=== PATIENT | female | born 1965 | race Caucasian/White ===

== ENCOUNTER 2017-10-19 23:05 | Emergency (ER) | payer BC ==
[2017-10-19 23:18] VITALS: BP 154/83
--- NOTE | 2017-10-20 00:06 | EDM.PDOC ---
ED HPI GENERAL MEDICAL PROBLEM - General Chief Complaint: Chest Pain Stated Complaint: CHEST PAIN Time Seen by Provider: 10/19/17 23:23 Source of Information: Reports: Patient, RN Notes Reviewed History Limitations: Reports: No Limitations - History of Present Illness INITIAL COMMENTS - FREE TEXT/NARRATIVE: Brought in by her Chief complaint Palpitations History of present illness 51-year-old female with history of atrial fibrillation, previously on medication but has been stable for several years. Was nauseated in the evening after dinner. 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 Woke up at 10:10 PM feeling her heart beating weirdly. She sat up, her nausea had gotten worse than before the nap and she felt an irregularity in her heart which she confirmed by you listening with her own stethoscope. She felt lightheaded when she walked around. Since it didn't settle down as her irregular heartbeat has in the past, she decided to come into emergency. She still feels "different", nausea has somewhat subsided. No chest pain no shortness of breath no cough no wheezing. 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 Underwent mechanical valve placement. Her atrial fibrillation for which she had been on regular medication improved over the next couple of years and now she only gets occasional irregular heartbeats which she can usually get better by sitting up and walking around. Back in the beginning she had medical cardioversion twice for atrial fibrillation. She remains on Coumadin long-term because of the mechanical valve No recent infections or injuries - Related Data Allergies Allergy/AdvReac Type Severity Reaction Status Date / Time acetaminophen [From Percocet] Allergy Hives Verified 10/19/17 23:17 furosemide Allergy Hives Verified 10/19/17 23:17 iodine Allergy Hives Verified 10/19/17 23:17 oxycodone HCl [From Percocet] Allergy Hives Verified 10/19/17 23:17 tramadol Allergy Bradycardia Verified 10/19/17 23:17 codeine AdvReac Nausea Verified 10/19/17 23:17 erythromycin base AdvReac Nausea Verified 10/19/17 23:17 [Erythromycin Base] diagnostic material Allergy Cannot Uncoded 10/19/17 23:17 Remember Home Meds: Home Meds Albuterol [Proair HFA] 2 puff INH Q6H PRN 02/23/15 [History] Ascorbic Acid 500 mg PO DAILY 02/23/15 [History] Cetirizine [ZyrTEC] 10 mg PO DAILY PRN 02/23/15 [History] Cyclobenzaprine [Flexeril] 5 mg PO BID PRN 02/23/15 [History] Levothyroxine [Synthroid] 50 mcg PO ACBREAKFAST 02/23/15 [History] Multivitamin with Minerals [Multiple Vitamin] 1 tab PO DAILY 02/23/15 [History] [place]-3/DHA/Epa/Fish Oil [Fish Oil 1,000 mg Softgel] 1 tab PO DAILY 02/23/15 [ History] Warfarin Sodium [Coumadin] 8 mg PO .MWF 02/23/15 [History] Calcium Carbonate/Vitamin D3 [Calcium Carbonate/Vitamin D 600 MG-200 Unit] 2 tab PO DAILY 10/19/17 [History] Celecoxib 200 mg PO DAILY PRN 10/19/17 [History] Cholecalciferol (Vitamin D3) [Vitamin D3] 5,000 unit PO DAILY 10/19/17 [History] Ubidecarenone [Co Q-10] 200 mg PO DAILY 10/19/17 [History] atorvaSTATin [Lipitor] 10 mg PO BEDTIME 10/19/17 [History] buPROPion [buPROPion XL] 150 mg PO BID 10/19/17 [History] Past Medical History HEENT History: Reports: Allergic Rhinitis, Impaired Vision Cardiovascular History: Reports: Arrhythmia, High Cholesterol Respiratory History: Reports: Bronchitis, Recurrent Other Respiratory History: had positive mantoux-tx Gastrointestinal History: Reports: Chronic Constipation, Chronic Diarrhea, Diverticulosis, Irritable Bowel Syndrome Genitourinary History: Reports: UTI, 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: Musculoskeletal History: Reports: Fibromyalgia Endocrine/Metabolic History: Reports: Hypoparathyroidism, Vitamin D Deficiency Hematologic History: Reports: Anemia, Anticoagulation Therapy - Infectious Disease History Infectious Disease History: Reports: Chicken Pox, Measles, Mumps, Pertussis ( Whooping Cough) - Past Surgical History HEENT Surgical History: Reports: Adenoidectomy, Tonsillectomy Other HEENT Surgeries/Procedures: deviated septum repair Cardiovascular Surgical History: Reports: Valve Replacement GI Surgical History: Reports: Cholecystectomy, Colonoscopy Female Surgical History: Reports: Hysterectomy Social & Family History - Tobacco Use Smoking Status *Q: Never Smoker - Caffeine Use Caffeine Use: Reports: Coffee - Recreational Drug Use Recreational Drug Use: No ED ROS GENERAL - Review of Systems Review Of Systems: See Below Constitutional: Reports: Other (Feels odd, different, nauseated). Denies: Decreased Appetite, Weight Loss HEENT: Reports: No Symptoms Respiratory: Reports: No Symptoms Cardiovascular: Reports: Lightheadedness, Palpitations. Denies: Chest Pain, Dyspnea on Exertion, Syncope GI/Abdominal: Reports: Nausea. Denies: Abdominal Pain, Diarrhea, Decreased Appetite, Vomiting : Reports: No Symptoms Musculoskeletal: Reports: Back Pain (Chronic), Leg Pain (Restless legs) Skin: Reports: No Symptoms Neurological: Reports: No Symptoms. Denies: Difficulty Walking Psychiatric: Reports: No Symptoms ED EXAM, GENERAL - Physical Exam Exam: See Below Exam Limited By: No Limitations General Appearance: Alert, Anxious, Mild Distress, Other (Heart rate is normal although the rhythm appears irregular, unclear if she is in atrial fibrillation or not, Mild elevation blood pressure) Eye Exam: Bilateral Eye: Normal Inspection Ears: Hearing Grossly Normal Nose: Normal Inspection Throat/Mouth: Normal Inspection Neck: Normal Inspection, Supple Respiratory/Chest: No Respiratory Distress, Lungs Clear, Normal Breath Sounds, No Accessory Muscle Use Cardiovascular: Other (Appears to be's regular rhythm with frequent premature beats or else slow atrial fibrillation). No: Bradycardia, Tachycardia Neurological: Alert, Oriented, No Motor/Sensory Deficits Psychiatric: Anxious (Mildly) Skin Exam: Warm, Dry, Intact, Normal Color Course - Vital Signs Last Recorded V/S: Last Vital Signs Temp 36.4 C 10/19/17 23:26 Pulse 68 10/19/17 23:26 Resp 16 10/19/17 23:26 BP 154/83 H 10/19/17 23:26 Pulse Ox 98 10/19/17 23:26 - Orders/Labs/Meds Orders: Active Orders 24 hr Category Date Time Status EKG Documentation Completion [RC] ASDIRECTED Care 10/19/17 23:46 Active EKG 12 Lead [EK] Routine Ther 10/19/17 23:46 Ordered - Re-Assessments/Exams Free Text/Narrative Re-Assessment/Exam: 10/20/17 00:06 51-year-old female with history of aortic valve replacement with mechanical valve, on chronic Coumadin, and history of atrial fibrillation, presenting with lightheadedness, malaise, nausea and palpitations. EKG 10/20/17 00:56 Sinus rhythm with PACs rate 58 No treatment required However this is the current rhythm, she could've had atrophic ablation earlier in the evening. So if the arrhythmia/palpitations is persistent or worsening orifices associated with shortness of breath or chest pain or difficulties breathing and she should get rechecked Departure - Departure Time of Disposition: 00:57 Disposition: Home, Self-Care 01 Clinical Impression: Premature atrial contractions - Discharge Information Instructions: Premature Atrial Contraction Referrals: PCP,None [Primary Care Provider] - Forms: ED Department Discharge Additional Instructions: Premature atrial contractions normally do not need treatment, they are a variation of normal If you develop bad chest pain, difficulty breathing, or racing heart get rechecked promptly - My Orders Last 24 Hours: My Active Orders 10/19/17 23:46 EKG Documentation Completion [RC] ASDIRECTED EKG 12 Lead [EK] Routine - Assessment/Plan Last 24 Hours: My Active Orders 10/19/17 23:46 EKG Documentation Completion [RC] ASDIRECTED EKG 12 Lead [EK] Routine
== END 2017-10-20 01:25 | disposition home or self-care (01) ==
LOC: JP.ED 23:05
DX: I49.1 Atrial premature depolarization (principal); E78.00 Pure hypercholesterolemia, unspecified; Z79.01 Long term (current) use of anticoagulants; Z79.899 Other long term (current) drug therapy; Z88.5 Allergy status to narcotic agent; Z88.1 Allergy status to other antibiotic agents; Z88.8 Allergy status to other drugs, medicaments and biological substances; Z88.6 Allergy status to analgesic agent
CPT/HCPCS: 93005; 99285-25

== ENCOUNTER 2019-09-02 10:18 | Emergency (ER) | payer BC ==
[2019-09-02 10:26] VITALS: PULSE 88
[2019-09-02 10:39] VITALS: BP 135/103
--- NOTE | 2019-09-02 10:54 | EDM.PDOC ---
ED HPI GENERAL MEDICAL PROBLEM - General Chief Complaint: Cardiovascular Problem Stated Complaint: 24HRS A FIB Time Seen by Provider: 09/02/19 10:42 Source of Information: Reports: Patient, RN Notes Reviewed History Limitations: Reports: No Limitations - History of Present Illness INITIAL COMMENTS - FREE TEXT/NARRATIVE: 53-year-old female presents emergency department today with complaint of palpitations and nausea, she has known history of paroxysmal atrial fibrillation as well as aortic valve replacement on chronic anticoagulation therapy. Has had difficulties with atrial fibrillation which usually spontaneously converts after her valve surgery. However this particular event started yesterday morning at 8:00 and has not spontaneously converted she has no other symptoms at this time. - Related Data Allergies Allergy/AdvReac Type Severity Reaction Status Date / Time acetaminophen [From Percocet] Allergy Hives Verified 09/02/19 10:29 furosemide Allergy Hives Verified 09/02/19 10:29 iodine Allergy Hives Verified 09/02/19 10:29 oxycodone HCl [From Percocet] Allergy Hives Verified 09/02/19 10:29 tramadol Allergy Bradycardia Verified 09/02/19 10:29 codeine AdvReac Nausea Verified 09/02/19 10:29 erythromycin base AdvReac Nausea Verified 09/02/19 10:29 [Erythromycin Base] diagnostic material Allergy Cannot Uncoded 09/02/19 10:29 Remember Home Meds: Home Meds Albuterol [Proair HFA] 2 puff INH Q6H PRN 02/23/15 [History] Ascorbic Acid 500 mg PO DAILY 02/23/15 [History] Cetirizine [ZyrTEC] 10 mg PO DAILY PRN 02/23/15 [History] Cyclobenzaprine [Flexeril] 5 mg PO BID PRN 02/23/15 [History] Levothyroxine [Synthroid] 75 mcg PO ACBREAKFAST 02/23/15 [History] Multivitamin with Minerals [Multiple Vitamin] 1 tab PO DAILY 02/23/15 [History] [place]-3/DHA/Epa/Fish Oil [Fish Oil 1,000 mg Softgel] 1 tab PO DAILY 02/23/15 [ History] Warfarin Sodium [Coumadin] 8 mg PO ASDIRECTED 02/23/15 [History] Calcium Carbonate/Vitamin D3 [Calcium Carbonate/Vitamin D 600 MG-200 Unit] 2 tab PO DAILY 10/19/17 [History] Celecoxib 200 mg PO DAILY PRN 10/19/17 [History] Cholecalciferol (Vitamin D3) [Vitamin D3] 5,000 unit PO DAILY 10/19/17 [History] Ubidecarenone [Co Q-10] 200 mg PO DAILY 10/19/17 [History] buPROPion [buPROPion XL] 150 mg PO BID 10/19/17 [History] Rosuvastatin [Crestor] 10 mg PO DAILY 09/02/19 [History] Past Medical History HEENT History: Reports: Allergic Rhinitis, Impaired Vision Cardiovascular History: Reports: Afib (Paroxysmal), Arrhythmia, High Cholesterol Respiratory History: Reports: Bronchitis, Recurrent Other Respiratory History: had positive mantoux-tx Gastrointestinal History: Reports: Chronic Constipation, Chronic Diarrhea, Diverticulosis, Irritable Bowel Syndrome Genitourinary History: Reports: UTI, 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: Musculoskeletal History: Reports: Fibromyalgia Endocrine/Metabolic History: Reports: Hypoparathyroidism, Vitamin D Deficiency Hematologic History: Reports: Anemia, Anticoagulation Therapy, Blood Transfusion (s), Iron Deficiency - Infectious Disease History Infectious Disease History: Reports: Chicken Pox, Measles, Mumps, Pertussis ( Whooping Cough) - Past Surgical History Head Surgeries/Procedures: Reports: None HEENT Surgical History: Reports: Adenoidectomy, Tonsillectomy Other HEENT Surgeries/Procedures: deviated septum repair Cardiovascular Surgical History: Reports: Valve Replacement Respiratory Surgical History: Reports: None GI Surgical History: Reports: Cholecystectomy, Colonoscopy Female Surgical History: Reports: Hysterectomy Endocrine Surgical History: Reports: None Musculoskeletal Surgical History: Reports: None Social & Family History - Tobacco Use Smoking Status *Q: Former Smoker Used Tobacco, but Quit: Yes Month/Year Tobacco Last Used: 2004 Second Hand Smoke Exposure: No - Caffeine Use Caffeine Use: Reports: None - Recreational Drug Use Recreational Drug Use: No ED ROS GENERAL - Review of Systems Review Of Systems: See Below Constitutional: Reports: No Symptoms HEENT: Reports: No Symptoms Respiratory: Reports: No Symptoms Cardiovascular: Reports: Palpitations GI/Abdominal: Reports: Nausea : Reports: No Symptoms ED EXAM, GENERAL - Physical Exam Exam: See Below Exam Limited By: No Limitations General Appearance: Alert, WD/WN, No Apparent Distress Respiratory/Chest: No Respiratory Distress, Lungs Clear, Normal Breath Sounds, No Accessory Muscle Use, Chest Non-Tender Cardiovascular: No Murmur, Irregularly Irregular GI/Abdominal: Soft, Non-Tender ED CARDIOLOGY PROCEDURES - Cardioversion Time of Cardioversion: 12:30 Indication: Other (Symptomatic atrial fibrillation) Patient Counseled: Yes Informed Consent Obtained: Yes Preparation: IV Access, Airway Management Equipment, Supplemental Oxygen, Reversal Agents Available, Other (Anesthesia performed) Pre-Procedure Sedation: Propofol Cardioversion Energy: 200J Sync Successful: Yes Number of Attempts: 1 Patient Condition Post Cardioversion: Improved Post Cardioversion EKG Reviewed: Yes - Additional/Other Procedure(s) Other (Free Text) Procedure(s): Preprocedure diagnosis: Symptomatic atrial fibrillation Postprocedure diagnosis: Sinus rhythm Indication for procedure: Nausea and palpitations Performing physician: Officer Procedure: Patient is located emergency department. Review risks and benefits of electrical cardioversion including but not limited to: Superficial skin sandhu , ineffective treatment, unknown arrhythmias, reaction to anesthesia medications or asystole. The risks and benefits to this procedure have been discussed. Patient wishes to proceed with electrical cardioversion. The patient was connected to cardioversion pads with EKG monitoring, oxygen via nasal cannula with equipment of intubation and suction in the room. Informed consent was completed prior to the procedure with timeout performed by nursing staff. After adequate anesthesia was achieved the machine was charged to 200 joules and a synchronized electrical shock was applied. Patient was successfully converted to normal sinus rhythm based on telemetry monitoring. Patient will remain in the emergency department for post anesthesia care until awake and alert. Plan is to discharge home. Anticoagulation of Coumadin INR 4.5 Complications: None apparent Postprocedural EKG: Sinus rhythm Face to Face time 15 minutes Course - Vital Signs Last Recorded V/S: Last Vital Signs Temp 97.3 F 09/02/19 10:26 Pulse 88 09/02/19 10:38 Resp 14 09/02/19 10:38 BP 135/103 H 09/02/19 10:38 Pulse Ox 96 09/02/19 10:38 - Orders/Labs/Meds Orders: Active Orders 24 hr Category Date Time Status Cardiac Monitoring [RC] .As Directed Care 09/02/19 10:51 Active EKG Documentation Completion [RC] ASDIRECTED Care 09/02/19 10:52 Active EKG Documentation Completion [RC] ASDIRECTED Care 09/02/19 12:29 Active Peripheral IV Care [RC] . DIRECTED Care 09/02/19 10:52 Active Sodium Chloride 0.9% [Normal Saline] 1,000 ml Med 09/02/19 11:00 Active IV ASDIRECTED Sodium Chloride 0.9% [Saline Flush] Med 09/02/19 10:51 Active 10 ml FLUSH ASDIRECTED PRN Peripheral IV Insertion Adult [OM.PC] Stat Oth 09/02/19 10:51 Ordered EKG 12 Lead [EK] Stat Ther 09/02/19 10:52 Ordered EKG 12 Lead [EK] Stat Ther 09/02/19 12:29 Ordered Medication Orders Sodium Chloride (Normal Saline) 1,000 mls @ 125 mls/hr IV ASDIRECTED DARA Last Admin: 09/02/19 11:01 Dose: 125 mls/hr Sodium Chloride (Saline Flush) 10 ml FLUSH ASDIRECTED PRN PRN Reason: Keep Vein Open Last Admin: 09/02/19 11:02 Dose: 10 ml Labs: Laboratory Tests 09/02/19 09/02/19 09/02/19 Range/Units 11:00 11:00 11:35 WBC 4.8 (4.5-11.0) K/uL RBC 5.27 (3.30-5.50) M/uL Hgb 15.0 (12.0-15.0) g/dL Hct 45.5 (36.0-48.0) % MCV 86 (80-98) fL MCH 29 (27-31) pg MCHC 33 (32-36) % Plt Count 254 (150-400) K/uL Neut % (Auto) 63 (36-66) % Lymph % (Auto) 21 L (24-44) % [place] % (Auto) 11 H (2-6) % Eos % (Auto) 5 H (2-4) % Baso % (Auto) 0 (0-1) % PT 45.0 H (9.5-12.0) sec INR 4.54 H* (0.80-1.20) Sodium 142 (140-148) mmol/L Potassium 3.9 (3.6-5.2) mmol/L Chloride 107 (100-108) mmol/L Carbon Dioxide 27 (21-32) mmol/L Anion Gap 7.8 (5.0-14.0) mmol/L BUN 12 (7-18) mg/dL Creatinine 0.7 (0.6-1.0) mg/dL Est Cr Clr Drug Dosing 89.34 mL/min Estimated GFR (MDRD) > 60 (>60) Glucose 102 (74-106) mg/dL Calcium 8.5 (8.5-10.1) mg/dL Total Bilirubin 0.4 (0.2-1.0) mg/dL AST 23 (15-37) U/L ALT 37 (12-78) U/L Alkaline Phosphatase 59 (46-116) U/L Troponin I < 0.017 (0.000-0.056) ng/mL Total Protein 6.7 (6.4-8.2) g/dL Albumin 3.5 (3.4-5.0) g/dL Globulin 3.2 (2.3-3.5) g/dL Albumin/Globulin Ratio 1.1 L (1.2-2.2) Meds: Medications Generic Name Dose Route Start Last Admin Trade Name Freq PRN Reason Stop Dose Admin Sodium Chloride 1,000 mls @ 125 mls/hr 09/02/19 11:00 09/02/19 11:01 Normal Saline IV 125 mls/hr ASDIRECTED DARA Administration Sodium Chloride 10 ml 09/02/19 10:51 09/02/19 11:02 Saline Flush FLUSH 10 ml ASDIRECTED PRN Administration Keep Vein Open Discontinued Medications Generic Name Dose Route Start Last Admin Trade Name Freq PRN Reason Stop Dose Admin Diltiazem HCl 25 mg 09/02/19 10:53 09/02/19 11:02 Diltiazem IVPUSH 09/02/19 10:54 25 mg ONETIME ONE Administration Ondansetron HCl 4 mg 09/02/19 11:12 09/02/19 11:14 Zofran IVPUSH 09/02/19 11:13 4 mg ONETIME ONE Administration Propofol Confirm 09/02/19 12:36 Diprivan 20 Ml Administered 09/02/19 12:37 Dose 200 mg .ROUTE .STK-MED ONE Departure - Departure Time of Disposition: 13:16 Disposition: Home, Self-Care 01 Condition: Fair Clinical Impression: Paroxysmal atrial fibrillation Instructions: Atrial Fibrillation, [id number] Referrals: PCP,None [Primary Care Provider] - Forms: ED Department Discharge Additional Instructions: Resume regular medications recommend follow-up with cardiology consider consultation with electrophysiology to see if you are a candidate for an ablation, call or return to the emergency department with worsening of symptoms Sepsis Event Note - Evaluation Sepsis Screening Result: No Definite Risk - Focused Exam Vital Signs: Vital Signs Temp Pulse Resp BP Pulse Ox 09/02/19 10:38 88 14 135/103 H 96 09/02/19 10:26 97.3 F 88 15 145/97 H 97 09/02/19 10:24 97.3 F 88 15 145/97 H 97 Date Exam was Performed: 09/02/19 Time Exam was Performed: 13:16 - My Orders Last 24 Hours: My Active Orders 09/02/19 10:51 Cardiac Monitoring [RC] .As Directed Sodium Chloride 0.9% [Saline Flush] 10 ml FLUSH ASDIRECTED PRN Peripheral IV Insertion Adult [OM.PC] Stat 09/02/19 10:52 EKG Documentation Completion [RC] ASDIRECTED Peripheral IV Care [RC] . DIRECTED EKG 12 Lead [EK] Stat 09/02/19 11:00 Sodium Chloride 0.9% [Normal Saline] 1,000 ml IV ASDIRECTED 09/02/19 12:29 EKG Documentation Completion [RC] ASDIRECTED EKG 12 Lead [EK] Stat - Assessment/Plan Last 24 Hours: My Active Orders 09/02/19 10:51 Cardiac Monitoring [RC] .As Directed Sodium Chloride 0.9% [Saline Flush] 10 ml FLUSH ASDIRECTED PRN Peripheral IV Insertion Adult [OM.PC] Stat 09/02/19 10:52 EKG Documentation Completion [RC] ASDIRECTED Peripheral IV Care [RC] . DIRECTED EKG 12 Lead [EK] Stat 09/02/19 11:00 Sodium Chloride 0.9% [Normal Saline] 1,000 ml IV ASDIRECTED 09/02/19 12:29 EKG Documentation Completion [RC] ASDIRECTED EKG 12 Lead [EK] Stat Plan: Assessment Acuity = acute Site and laterality = symptomatic atrial fibrillation status post DC electrical cardioversion Etiology = unknown Manifestations = nausea and palpitations now resolved Location of injury = Home Lab values = CBC, CMP unremarkable troponin is negative INR supratherapeutic at 4.5, EKG initially demonstrated atrial fibrillation post EKG demonstrates a sinus rhythm chest x-ray shows no acute process Plan Plan is to discharge home resume current medications follow-up with cardiology discussed possibility of ablation This note was dictated using [employer] voice recognition software please call with any questions on syntax or grammar.
[2019-09-02] MEDS: Sodium Chloride 0.9% 1,000 ML IV SCH (11:01)
[2019-09-02] MEDS: Diltiazem 25 MG/5 ML SDV IVPUSH ONE (11:02)
[2019-09-02] MEDS: Sodium Chloride 0.9% 10 ML Syringe FLUSH PRN (11:02)
[2019-09-02] MEDS: Ondansetron 4 MG/2 ML SDV IVPUSH ONE (11:14)
--- NOTE | 2019-09-02 11:45 | CR ---
CHEST: Portable 09/02/2019 11:03 AM CLINICAL HISTORY:Chest pain COMPARISON:None FINDINGS: Patient has had previous sternotomy. The heart size, pulmonary vascularity and hilar structures are normal. No infiltrate effusion or pneumothorax is seen. IMPRESSION: No acute cardiopulmonary process Previous sternotomy for valve replacement
[2019-09-02] MEDS ORDERED: Propofol 200 MG/20 ML SDV ONE (12:36)
== END 2019-09-02 13:26 | disposition home or self-care (01) ==
LOC: JP.ED 10:18
DX: I48.0 Paroxysmal atrial fibrillation (principal); E78.00 Pure hypercholesterolemia, unspecified; E20.9 Hypoparathyroidism, unspecified; Z87.891 Personal history of nicotine dependence; Z95.2 Presence of prosthetic heart valve; Z88.6 Allergy status to analgesic agent; Z88.5 Allergy status to narcotic agent; Z88.1 Allergy status to other antibiotic agents; Z79.899 Other long term (current) drug therapy
CPT/HCPCS: 36415; 71045; 71045-26; 80053; 84484; 85025; 85610; 92960; 93005; 93041; 96374; 96375; 99285-25; J2405; J2704; J3490; J7030

== ENCOUNTER 2020-07-04 23:26 | Emergency (ER) | payer BC ==
[2020-07-05 00:02] VITALS: BP 152/73; PULSE 70
--- NOTE | 2020-07-05 00:24 | EDM.PDOC ---
ED HPI GENERAL MEDICAL PROBLEM - General Chief Complaint: General Stated Complaint: RIGHT ARM PAIN Time Seen by Provider: 07/05/20 00:14 Source of Information: Reports: Patient History Limitations: Reports: No Limitations - History of Present Illness INITIAL COMMENTS - FREE TEXT/NARRATIVE: Sarah is a 54-year-old female presenting to the ED with concern of possible cellulitis involving the right upper arm. The patient reports that she had rotator cuff repair done at [facility] 2 months ago and had recovered from that. Tonight she was experiencing some increased pain in the arm and rubbed it and noticed that it was red, hot, swollen, and tender and was concerned that she may have a cellulitis developing prompting her to come in for evaluation. She denies any fever or chills. She has had no trauma to the arm. No other complaints. - Related Data Allergies Allergy/AdvReac Type Severity Reaction Status Date / Time acetaminophen [From Percocet] Allergy Hives Verified 09/02/19 10:29 furosemide Allergy Hives Verified 09/02/19 10:29 iodine Allergy Hives Verified 09/02/19 10:29 oxycodone HCl [From Percocet] Allergy Hives Verified 09/02/19 10:29 tramadol Allergy Bradycardia Verified 09/02/19 10:29 codeine AdvReac Nausea Verified 09/02/19 10:29 erythromycin base AdvReac Nausea Verified 09/02/19 10:29 [Erythromycin Base] contrast dye Allergy Hives Uncoded 07/05/20 00:22 diagnostic material Allergy Cannot Uncoded 09/02/19 10:29 Remember Home Meds: Home Meds Albuterol [Proair HFA] 2 puff INH Q6H PRN 02/23/15 [History] Ascorbic Acid 500 mg PO DAILY 02/23/15 [History] Cetirizine [ZyrTEC] 10 mg PO DAILY PRN 02/23/15 [History] Cyclobenzaprine [Flexeril] 5 mg PO BID PRN 02/23/15 [History] Levothyroxine [Synthroid] 75 mcg PO ACBREAKFAST 02/23/15 [History] Multivitamin with Minerals [Multiple Vitamin] 1 tab PO DAILY 02/23/15 [History] [place]-3/DHA/Epa/Fish Oil [Fish Oil 1,000 mg Softgel] 1 tab PO DAILY 02/23/15 [History] Warfarin Sodium [Coumadin] 6 - 8 mg PO ASDIRECTED 02/23/15 [History] Calcium Carbonate/Vitamin D3 [Calcium Carbonate/Vitamin D 600 MG-200 Unit] 2 tab PO DAILY 10/19/17 [History] Cholecalciferol (Vitamin D3) [Vitamin D3] 10,000 unit PO DAILY 10/19/17 [History] Ubidecarenone [Co Q-10] 200 mg PO DAILY 10/19/17 [History] Rosuvastatin [Crestor] 10 mg PO DAILY 09/02/19 [History] Doxylamine Succinate [Sleep Aid] 12.5 mg PO BEDTIME 07/05/20 [History] Glucosam/Chond/Collagen/Hyalur [Glucosamine Chondroitin] 2 each PO DAILY 07/05/20 [History] HYDROmorphone [Dilaudid] 1 tab PO DAILY PRN 07/05/20 [History] Pramipexole [Mirapex] 1 tab PO BEDTIME 07/05/20 [History] Zolpidem Tartrate [Ambien] 5 mg PO BEDTIME PRN 07/05/20 [History] Past Medical History HEENT History: Reports: Allergic Rhinitis, Impaired Vision Cardiovascular History: Reports: Afib (Paroxysmal), Arrhythmia, High Cholesterol Respiratory History: Reports: Bronchitis, Recurrent Other Respiratory History: had positive mantoux-tx Gastrointestinal History: Reports: Chronic Constipation, Chronic Diarrhea, Diverticulosis, Irritable Bowel Syndrome Genitourinary History: Reports: UTI, 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: Musculoskeletal History: Reports: Fibromyalgia Endocrine/Metabolic History: Reports: Hypoparathyroidism, Vitamin D Deficiency Hematologic History: Reports: Anemia, Anticoagulation Therapy, Blood Transfusion(s), Iron Deficiency - Infectious Disease History Infectious Disease History: Reports: Chicken Pox, Measles, Mumps, Pertussis (W hooping Cough) - Past Surgical History Head Surgeries/Procedures: Reports: None HEENT Surgical History: Reports: Adenoidectomy, Tonsillectomy Other HEENT Surgeries/Procedures: deviated septum repair Cardiovascular Surgical History: Reports: Valve Replacement Respiratory Surgical History: Reports: None GI Surgical History: Reports: Cholecystectomy, Colonoscopy Female Surgical History: Reports: Hysterectomy Endocrine Surgical History: Reports: None Musculoskeletal Surgical History: Reports: None Social & Family History - Caffeine Use Caffeine Use: Reports: None ED ROS GENERAL - Review of Systems Review Of Systems: See Below Constitutional: Reports: No Symptoms HEENT: Reports: No Symptoms Respiratory: Reports: No Symptoms Cardiovascular: Reports: No Symptoms Endocrine: Reports: No Symptoms GI/Abdominal: Reports: No Symptoms : Reports: No Symptoms Musculoskeletal: Reports: No Symptoms Skin: Reports: Erythema (Redness, swelling, tenderness, and increased temperature of the right upper arm.) Neurological: Reports: No Symptoms Psychiatric: Reports: No Symptoms Hematologic/Lymphatic: Reports: No Symptoms Immunologic: Reports: No Symptoms ED EXAM, GENERAL - Physical Exam Exam: See Below Exam Limited By: No Limitations General Appearance: Alert, No Apparent Distress Peripheral Pulses: 2+: Radial (R) Neurological: Alert, Oriented, Normal Cognition, No Motor/Sensory Deficits Skin Exam: Warm, Erythema, Increased Warmth, Other (Swelling of the right upper arm.). No: Rash, Wound/Incision Lymphatic: No Adenopathy Front/Back Body Diagram: 1 - Red, hot, tender, swollen 2 - Red, hot, tender, swollen Course - Vital Signs Last Recorded V/S: Last Vital Signs Temp 36.6 C 07/05/20 00:33 Pulse 70 07/05/20 00:33 Resp 16 07/05/20 00:33 BP 152/73 H 07/05/20 00:33 Pulse Ox 98 07/05/20 00:33 - Orders/Labs/Meds Labs: Laboratory Tests 07/05/20 07/05/20 07/05/20 Range/Units 00:22 00:22 00:22 WBC 8.1 (4.5-11.0) K/uL RBC 4.78 (3.30-5.50) M/uL Hgb 13.5 (12.0-15.0) g/dL Hct 42.0 (36.0-48.0) % MCV 88 (80-98) fL MCH 28 (27-31) pg MCHC 32 (32-36) % Plt Count 306 (150-400) K/uL Neut % (Auto) 69 H (36-66) % Lymph % (Auto) 18 L (24-44) % [place] % (Auto) 11 H (2-6) % Eos % (Auto) 2 (2-4) % Baso % (Auto) 0 (0-1) % PT 26.4 H (9.5-12.0) sec INR 2.47 H (0.80-1.20) C-Reactive Protein 0.07 (0.0-0.3) mg/dL - Re-Assessments/Exams Free Text/Narrative Re-Assessment/Exam: 07/05/20 01:12 I reviewed the patient's labs showing a normal CBC, CRP, and INR at 2.5 which is therapeutic. No systemic evidence for infection, this still looks to be a localized cellulitis so we will place the patient on cephalexin 500 mg 3 times daily for 7 days. At this time she is suitable for discharge home. Indications return to the ED were discussed and all questions were answered prior to discharge. Departure - Departure Time of Disposition: 01:13 Disposition: Home, Self-Care 01 Clinical Impression: Cellulitis of right upper arm - Discharge Information *PRESCRIPTION DRUG MONITORING PROGRAM REVIEWED*: Not Applicable *COPY OF PRESCRIPTION DRUG MONITORING REPORT IN PATIENT EFRAÍN: Not Applicable Instructions: Cellulitis, Adult, [id number] Referrals: Verónica Brumfield CNM [Primary Care Provider] - Forms: ED Department Discharge Care Plan Goals: It appears you may have a early onset of a skin infection called cellulitis. We will put you on Keflex 1 capsule 3 times a day for the next 7 days. This prescription has been sent out to the [facility] for 20 capsules. Sepsis Event Note (ED) - Focused Exam Vital Signs: Vital Signs Temp Pulse Resp BP Pulse Ox 07/05/20 00:33 36.6 C 70 16 152/73 H 98 07/05/20 00:01 36.6 C 70 16 152/73 H 98 - Problem List & Annotations (1) Cellulitis of right upper arm SNOMED Code(s): 28435693 Code(s): L03.113 - CELLULITIS OF RIGHT UPPER LIMB Status: Acute Priority: Low Current Visit: Yes - Problem List Review Problem List Initiated/Reviewed/Updated: Yes
== END 2020-07-05 01:28 | disposition home or self-care (01) ==
LOC: JP.ED 23:26
DX: L03.113 Cellulitis of right upper limb (principal); I48.91 Unspecified atrial fibrillation; E78.00 Pure hypercholesterolemia, unspecified; E20.9 Hypoparathyroidism, unspecified; Z88.6 Allergy status to analgesic agent; Z88.8 Allergy status to other drugs, medicaments and biological substances; Z91.048 Other nonmedicinal substance allergy status; Z88.5 Allergy status to narcotic agent; Z91.041 Radiographic dye allergy status; Z88.1 Allergy status to other antibiotic agents; Z79.899 Other long term (current) drug therapy
CPT/HCPCS: 36415; 85025; 85610; 86140; 99283

== ENCOUNTER 2020-12-22 15:47 | Emergency (ER) | payer BC ==
[2020-12-22 16:12] VITALS: BP 138/71; PULSE 71
--- NOTE | 2020-12-22 16:28 | EDM.PDOC ---
ED HPI GENERAL MEDICAL PROBLEM - General Chief Complaint: ENT Problem Stated Complaint: RIGHT EAR PAIN Time Seen by Provider: 12/22/20 16:00 Source of Information: Reports: Patient, Old Records History Limitations: Reports: No Limitations - History of Present Illness INITIAL COMMENTS - FREE TEXT/NARRATIVE: 55 yo female with lots of problems with her ears presents with R ear pain of recent onset. Is seeing an ENT doctor in the near future. No fever. Onset: Today, Gradual Onset Date: 12/22/20 Duration: Hour(s):, Constant Location: Reports: Face (R ear) Quality: Reports: Ache Severity: Mild Improves with: Reports: None Worsens with: Reports: Other ( time ?) Context: Reports: Other (See HPI) Associated Symptoms: Reports: No Other Symptoms Treatments ADVERTISING INTERNSHIP: Reports: Other (see below) (none) Right Ear Pain Score (Numeric/FACES): 8 - Related Data Allergies Allergy/AdvReac Type Severity Reaction Status Date / Time acetaminophen [From Percocet] Allergy Hives Verified 09/02/19 10:29 furosemide Allergy Hives Verified 09/02/19 10:29 iodine Allergy Hives Verified 09/02/19 10:29 oxycodone HCl [From Percocet] Allergy Hives Verified 09/02/19 10:29 tramadol Allergy Bradycardia Verified 09/02/19 10:29 codeine AdvReac Nausea Verified 09/02/19 10:29 erythromycin base AdvReac Nausea Verified 09/02/19 10:29 [Erythromycin Base] contrast dye Allergy Hives Uncoded 07/05/20 00:22 diagnostic material Allergy Cannot Uncoded 09/02/19 10:29 Remember Home Meds: Home Meds Albuterol [Proair HFA] 2 puff INH Q6H PRN 02/23/15 [History] Ascorbic Acid 500 mg PO DAILY 02/23/15 [History] Cetirizine [ZyrTEC] 10 mg PO DAILY PRN 02/23/15 [History] Levothyroxine [Synthroid] 75 mcg PO ACBREAKFAST 02/23/15 [History] Multivitamin with Minerals [Multiple Vitamin] 1 tab PO DAILY 02/23/15 [History] [place]-3/DHA/Epa/Fish Oil [Fish Oil 1,000 mg Softgel] 1 tab PO DAILY 02/23/15 [History] Warfarin Sodium [Coumadin] 6 - 8 mg PO ASDIRECTED 02/23/15 [History] Calcium Carbonate/Vitamin D3 [Calcium Carbonate/Vitamin D 600 MG-200 Unit] 2 tab PO DAILY 10/19/17 [History] Cholecalciferol (Vitamin D3) [Vitamin D3] 10,000 unit PO DAILY 10/19/17 [History] Ubidecarenone [Co Q-10] 200 mg PO DAILY 10/19/17 [History] Rosuvastatin [Crestor] 10 mg PO DAILY 09/02/19 [History] Doxylamine Succinate [Sleep Aid] 12.5 mg PO BEDTIME 07/05/20 [History] Glucosam/Chond/Collagen/Hyalur [Glucosamine Chondroitin] 2 each PO DAILY 07/05/20 [History] Pramipexole [Mirapex] 1 tab PO BEDTIME 07/05/20 [History] Zolpidem Tartrate [Ambien] 5 mg PO BEDTIME PRN 07/05/20 [History] Sulfamethoxazole/Trimethoprim [Bactrim Ds Tablet] 1 each PO Q12H #15 tablet 12/22/20 [Rx] Past Medical History HEENT History: Reports: Allergic Rhinitis, Impaired Vision Cardiovascular History: Reports: Afib, Arrhythmia, High Cholesterol Respiratory History: Reports: Bronchitis, Recurrent Other Respiratory History: had positive mantoux-tx Gastrointestinal History: Reports: Chronic Constipation, Chronic Diarrhea, Diverticulosis, Irritable Bowel Syndrome Genitourinary History: Reports: UTI, 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: Musculoskeletal History: Reports: Fibromyalgia Endocrine/Metabolic History: Reports: Hypothyroidism, Vitamin D Deficiency Hematologic History: Reports: Anemia, Anticoagulation Therapy, Blood Transfusion(s), Iron Deficiency - Infectious Disease History Infectious Disease History: Reports: Chicken Pox, Measles, Mumps, Pertussis (Whooping Cough) - Past Surgical History Head Surgeries/Procedures: Reports: None HEENT Surgical History: Reports: Adenoidectomy, Tonsillectomy Other HEENT Surgeries/Procedures: deviated septum repair Cardiovascular Surgical History: Reports: Valve Replacement Respiratory Surgical History: Reports: None GI Surgical History: Reports: Cholecystectomy, Colonoscopy Female Surgical History: Reports: Hysterectomy Endocrine Surgical History: Reports: None Musculoskeletal Surgical History: Reports: Shoulder Surgery Social & Family History - Tobacco Use Tobacco Use Status *Q: Never Tobacco User - Caffeine Use Caffeine Use: Reports: Coffee - Recreational Drug Use Recreational Drug Use: No ED ROS ENT - Review of Systems Review Of Systems: See Below Constitutional: Reports: No Symptoms HEENT: Reports: Ear Pain (right) Respiratory: Reports: No Symptoms Cardiovascular: Reports: No Symptoms GI/Abdominal: Reports: No Symptoms : Reports: No Symptoms Musculoskeletal: Reports: No Symptoms Skin: Reports: No Symptoms Neurological: Reports: No Symptoms ED EXAM, ENT - Physical Exam Exam: See Below Exam Limited By: No Limitations General Appearance: Alert, WD/WN, No Apparent Distress Eye Exam: Bilateral Eye: Normal Inspection Ears: Normal External Exam, Normal Canal, Hearing Grossly Normal, TM Erythema (a portion of the R TM is "pink". ) Nose: Normal Inspection, No Blood Mouth/Throat: Normal Inspection, Normal Lips, Normal Oropharynx, Other (R TMJ jt tenderness on palpation). No: Throat Swelling, Tonsillar Swelling Head: Atraumatic, Normocephalic Neck: Normal Inspection Respiratory/Chest: No Respiratory Distress, Lungs Clear, Normal Breath Sounds Cardiovascular: Regular Rate, Rhythm, No Edema Extremities: Normal Inspection Neurological: Alert, Oriented, CN II-XII Intact, Normal Cognition, No Motor/Sensory Deficits Psychiatric: Normal Affect, Normal Mood Skin: Warm, Dry, Intact, Normal Color, No Rash Course - Vital Signs Last Recorded V/S: Last Vital Signs Temp 36.3 C 12/22/20 16:16 Pulse 71 12/22/20 16:16 Resp 14 12/22/20 16:16 BP 138/71 12/22/20 16:16 Pulse Ox 97 12/22/20 16:16 Departure - Departure Time of Disposition: 16:27 Disposition: Home, Self-Care 01 Condition: Good Clinical Impression: TMJ tenderness, right Right otitis media Qualifiers: Otitis media type: suppurative Chronicity: acute Recurrence: non-recurrent Spontaneous tympanic membrane rupture: without spontaneous rupture Qualified Code(s): H66.001 - Acute suppurative otitis media without spontaneous rupture of ear drum, right ear - Discharge Information *PRESCRIPTION DRUG MONITORING PROGRAM REVIEWED*: Not Applicable *COPY OF PRESCRIPTION DRUG MONITORING REPORT IN PATIENT EFRAÍN: Not Applicable Prescriptions: Sulfamethoxazole/Trimethoprim [Bactrim Ds Tablet] 1 each PO Q12H #15 tablet Instructions: Temporomandibular Joint Syndrome Referrals: Verónica Brumfield CNM [Primary Care Provider] - Additional Instructions: Use TMP/SMZ every 12 hrs until gone. Keep your ENT appt as scheduled. Eat a soft diet, talk as little as possible, no gum chewing or opening your mouth wide. Ibuprofen 400 mg every 6 hrs with food for pain relief. Sepsis Event Note (ED) - Evaluation Sepsis Screening Result: No Definite Risk - Focused Exam Vital Signs: Vital Signs Temp Pulse Resp BP Pulse Ox 12/22/20 16:16 36.3 C 71 14 138/71 97 12/22/20 16:11 36.3 C 71 14 138/71 97
== END 2020-12-22 16:30 | disposition home or self-care (01) ==
LOC: JP.ED 15:47
DX: H66.001 Acute suppurative otitis media without spontaneous rupture of ear drum, right ear (principal); R68.84 Jaw pain; Z88.5 Allergy status to narcotic agent; Z91.041 Radiographic dye allergy status; Z88.1 Allergy status to other antibiotic agents; Z88.8 Allergy status to other drugs, medicaments and biological substances; Z91.048 Other nonmedicinal substance allergy status
CPT/HCPCS: 99282

== ENCOUNTER 2021-03-05 10:13 | Emergency (ER) | payer BC ==
[2021-03-05 10:32] VITALS: BP 131/68; PULSE 70
--- NOTE | 2021-03-05 10:46 | EDM.PDOC ---
ED HPI GENERAL MEDICAL PROBLEM - General Chief Complaint: Chest Pain Stated Complaint: HEART ISSUE Time Seen by Provider: 03/05/21 10:37 Source of Information: Reports: Patient, Old Records, Provider, RN Notes Reviewed History Limitations: Reports: No Limitations - History of Present Illness INITIAL COMMENTS - FREE TEXT/NARRATIVE: 55-year-old female presents emergency department today for evaluation of left arm pain with shortness of breath and diaphoresis. She has a known history of atrial fibrillation is scheduled for an ablation later this month. I have seen her in the past for atrial fibrillation underwent cardioversion at that time. This was in 2019 she had paroxysmal atrial fibrillation at that time is now persistent. She has been evaluated by cardiology she is a candidate for ablation. For this particular event she was scheduled for routine wellness exam presented to her primary care about 2 hours prior took the steps got short of breath had some tingling down her left arm diaphoretic and nauseated. At this time she is chest pain-free asymptomatic declines aspirin. She states she has had these symptoms before when she exerts herself going upstairs last angiogram was 20 years ago is scheduled for 1 on the of this month. She does present with an EKG which demonstrates atrial fibrillation there is some ST changes but it is in single leads to depression lead to in V6 I do have an old EKG from 2020 it is very similar to that EKG. - Related Data Allergies Allergy/AdvReac Type Severity Reaction Status Date / Time acetaminophen [From Percocet] Allergy Hives Verified 03/05/21 10:30 furosemide Allergy Hives Verified 03/05/21 10:30 iodine Allergy Hives Verified 03/05/21 10:30 oxycodone HCl [From Percocet] Allergy Hives Verified 03/05/21 10:30 tramadol Allergy Bradycardia Verified 03/05/21 10:30 codeine AdvReac Nausea Verified 03/05/21 10:30 erythromycin base AdvReac Nausea Verified 03/05/21 10:30 [Erythromycin Base] contrast dye Allergy Hives Uncoded 07/05/20 00:22 diagnostic material Allergy Cannot Uncoded 09/02/19 10:29 Remember Home Meds: Home Meds Albuterol [Proair HFA] 2 puff INH Q6H PRN 02/23/15 [History] Ascorbic Acid 500 mg PO DAILY 02/23/15 [History] Cetirizine [ZyrTEC] 10 mg PO DAILY PRN 02/23/15 [History] Levothyroxine [Synthroid] 75 mcg PO ACBREAKFAST 02/23/15 [History] Multivitamin with Minerals [Multiple Vitamin] 1 tab PO DAILY 02/23/15 [History] [place]-3/DHA/Epa/Fish Oil [Fish Oil 1,000 mg Softgel] 1 tab PO DAILY 02/23/15 [History] Warfarin Sodium [Coumadin] 6 - 8 mg PO ASDIRECTED 02/23/15 [History] Calcium Carbonate/Vitamin D3 [Calcium Carbonate/Vitamin D 600 MG-200 Unit] 2 tab PO DAILY 10/19/17 [History] Cholecalciferol (Vitamin D3) [Vitamin D3] 10,000 unit PO DAILY 10/19/17 [History] Ubidecarenone [Co Q-10] 200 mg PO DAILY 10/19/17 [History] Rosuvastatin [Crestor] 10 mg PO DAILY 09/02/19 [History] Doxylamine Succinate [Sleep Aid] 12.5 mg PO BEDTIME 07/05/20 [History] Glucosam/Chond/Collagen/Hyalur [Glucosamine Chondroitin] 2 each PO DAILY 07/05/20 [History] Pramipexole [Mirapex] 1 tab PO BEDTIME 07/05/20 [History] Zolpidem Tartrate [Ambien] 5 mg PO BEDTIME PRN 07/05/20 [History] Diltiazem [Dilacor XR] 180 mg PO DAILY 03/05/21 [History] Past Medical History HEENT History: Reports: Allergic Rhinitis, Impaired Vision Cardiovascular History: Reports: Afib, Arrhythmia, High Cholesterol Respiratory History: Reports: Bronchitis, Recurrent Other Respiratory History: had positive mantoux-tx Gastrointestinal History: Reports: Chronic Constipation, Chronic Diarrhea, Diverticulosis, Irritable Bowel Syndrome Genitourinary History: Reports: UTI, 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: Musculoskeletal History: Reports: Fibromyalgia Endocrine/Metabolic History: Reports: Hypothyroidism, Vitamin D Deficiency Hematologic History: Reports: Anemia, Anticoagulation Therapy, Blood Transfusion(s), Iron Deficiency - Infectious Disease History Infectious Disease History: Reports: Chicken Pox, Measles, Mumps, Pertussis (Whooping Cough) - Past Surgical History Head Surgeries/Procedures: Reports: None HEENT Surgical History: Reports: Adenoidectomy, Tonsillectomy Other HEENT Surgeries/Procedures: deviated septum repair Cardiovascular Surgical History: Reports: Valve Replacement Respiratory Surgical History: Reports: None GI Surgical History: Reports: Cholecystectomy, Colonoscopy Female Surgical History: Reports: Hysterectomy Musculoskeletal Surgical History: Reports: Shoulder Surgery Social & Family History - Tobacco Use Tobacco Use Status *Q: Never Tobacco User - Caffeine Use Caffeine Use: Reports: None - Recreational Drug Use Recreational Drug Use: No ED ROS GENERAL - Review of Systems Review Of Systems: See Below Constitutional: Reports: Diaphoresis HEENT: Reports: No Symptoms Respiratory: Reports: Shortness of Breath Cardiovascular: Reports: Dyspnea on Exertion. Denies: Chest Pain GI/Abdominal: Reports: Nausea Musculoskeletal: Reports: Arm Pain ED EXAM, GENERAL - Physical Exam Exam: See Below Exam Limited By: No Limitations General Appearance: Alert, WD/WN, No Apparent Distress Respiratory/Chest: No Respiratory Distress, Lungs Clear, Normal Breath Sounds, No Accessory Muscle Use, Chest Non-Tender Cardiovascular: Systolic Murmur, Irregularly Irregular GI/Abdominal: Soft, Non-Tender Course - Vital Signs Last Recorded V/S: Last Vital Signs Temp 98.1 F 03/05/21 10:34 Pulse 70 03/05/21 10:34 Resp 20 03/05/21 10:34 BP 131/68 03/05/21 10:34 Pulse Ox 94 L 03/05/21 10:34 - Orders/Labs/Meds Orders: Active Orders 24 hr Category Date Time Status Cardiac Monitoring [RC] .As Directed Care 03/05/21 10:42 Active Labs: Laboratory Tests 03/05/21 03/05/21 03/05/21 Range/Units 10:45 10:45 13:27 WBC 7.7 (4.5-11.0) K/uL RBC 5.26 (3.30-5.50) M/uL Hgb 14.7 (12.0-15.0) g/dL Hct 45.1 (36.0-48.0) % MCV 86 (80-98) fL MCH 28 (27-31) pg MCHC 33 (32-36) % Plt Count 266 (150-400) K/uL Neut % (Auto) 77.1 H (36-66) % Lymph % (Auto) 13.0 L (24-44) % [place] % (Auto) 7.9 H (2-6) % Eos % (Auto) 1.6 L (2-4) % Baso % (Auto) 0.4 (0-1) % Sodium 140 (140-148) mmol/L Potassium 4.4 (3.6-5.2) mmol/L Chloride 103 (100-108) mmol/L Carbon Dioxide 27 (21-32) mmol/L Anion Gap 9.9 (5.0-14.0) mmol/L BUN 14 (7-18) mg/dL Creatinine 0.8 (0.6-1.0) mg/dL Est Cr Clr Drug Dosing 76.36 mL/min Estimated GFR (MDRD) > 60 (>60) Glucose 119 H (74-106) mg/dL Calcium 9.2 (8.5-10.1) mg/dL Troponin I < 0.017 < 0.017 (0.000-0.056) ng/mL Departure - Departure Time of Disposition: 13:57 Disposition: Home, Self-Care 01 Condition: Fair Clinical Impression: Permanent atrial fibrillation Instructions: Atrial Fibrillation, [id number] Referrals: Verónica Brumfield CNM [Primary Care Provider] - Forms: ED Department Discharge Additional Instructions: Keep follow-up appointment with cardiology, call or return to the emergency d epartment worsening of symptoms Sepsis Event Note (ED) - Evaluation Sepsis Screening Result: No Definite Risk - Focused Exam Vital Signs: Vital Signs Temp Pulse Resp BP Pulse Ox 03/05/21 10:34 98.1 F 70 20 131/68 94 L 03/05/21 10:29 98.1 F 70 20 131/68 94 L - My Orders Last 24 Hours: My Active Orders 03/05/21 10:42 Cardiac Monitoring [RC] .As Directed - Assessment/Plan Last 24 Hours: My Active Orders 03/05/21 10:42 Cardiac Monitoring [RC] .As Directed Plan: Assessment Acuity = acute Site and laterality = persistent atrial fibrillation Etiology = unknown Manifestations = dyspnea upon exertion Location of injury = Home Lab values = CBC, BMP unremarkable troponin negative x2 EKG same as prior no changes Plan She has a follow-up with appointment with cardiology middle of this month for an ablation and cardiac catheterization This note was dictated using [employer] voice recognition software please call with any questions on syntax or grammar.
== END 2021-03-05 14:12 | disposition home or self-care (01) ==
LOC: JP.ED 10:13
DX: I48.21 Permanent atrial fibrillation (principal); E78.00 Pure hypercholesterolemia, unspecified; Z79.01 Long term (current) use of anticoagulants; Z79.899 Other long term (current) drug therapy; Z88.5 Allergy status to narcotic agent; Z88.8 Allergy status to other drugs, medicaments and biological substances; Z91.041 Radiographic dye allergy status
CPT/HCPCS: 36415; 80048; 84484; 85025; 99284

== ENCOUNTER 2022-11-26 17:12 | Emergency (ER) | payer BC ==
[2022-11-26] MEDS ORDERED: Ondansetron 4 MG/2 ML SDV IVPUSH ONE (17:46)
[2022-11-26] MEDS ORDERED: Sodium Chloride 0.9% 1,000 ML IV ONE (17:46)
[2022-11-26] MEDS ORDERED: Ketorolac 30 MG/ML SDV IVPUSH ONE (17:46)
[2022-11-26 17:52] LABS: HEMATOCRIT 45.2 % (34.3-46.0); HEMOGLOBIN 14.7 g/dL (11.2-15.5); MEAN CORPUSCULAR HEMOGLOBIN 27.9 pg (31.6-35.5); MEAN CORPUSCULAR HGB CONC 32.5 g/dL (31.6-35.5); MEAN CORPUSCULAR VOLUME 85.8 fL (81.4-99.0); RED BLOOD CELL COUNT 5.27 M/uL (3.77-5.24); WHITE BLOOD CELL COUNT,WBC 7.8 K/uL (3.2-11.0)
[2022-11-26 18:02] LABS: INR 3.9; PROTHROMBIN TIME 36.5 sec (9.2-10.6)
[2022-11-26 18:05] LABS: A/G RATIO 1.1 (1.2-2.2); ALANINE AMINOTRANSFERASE,ALT 45 U/L (12-78); ALBUMIN 3.8 g/dL (3.4-5.0); ALKALINE PHOSPHATASE 90 U/L (46-116); ASPARTATE AMNIOTRANSFERASE,AST 33 U/L (15-37); BILIRUBIN TOTAL 0.4 mg/dL (0.2-1.0); BLOOD UREA NITROGEN,BUN 16 mg/dL (7-18); CALCIUM 9.1 mg/dL (8.5-10.1); CARBON DIOXIDE,CO2 25 mmol/L (21-32); CHLORIDE,CL 104 mmol/L (100-108); CREATININE 0.9 mg/dL (0.6-1.0); EST CRCL DRUG DOSING (CG) 65.81 mL/min; ESTIMATED GFR 75 mL/min (>60); GLUCOSE RANDOM 138 mg/dL (74-106); POTASSIUM,K 4.3 mmol/L (3.6-5.2); PROTEIN TOTAL,TP 7.4 g/dL (6.4-8.2); SODIUM,NA 139 mmol/L (140-148)
[2022-11-26 18:07] LABS: ANION GAP 14.3 mmol/L (5.0-14.0)
[2022-11-26 18:30] LABS: APPEARANCE,URINE SLIGHTLY CLOUDY (CLEAR); COLOR,URINE ORANGE (YELLOW)
[2022-11-26 18:37] LABS: RBC,URINE PACKED (0-5)
[2022-11-26 18:38] LABS: AMORPHOUS SEDIMENT,URINE NOT SEEN; BACTERIA,URINE FEW; EPITHELIAL CELLS,URINE FEW; MUCUS,URINE FEW; WBC,URINE 0-5 (0-5)
[2022-11-26] MEDS ORDERED: Tamsulosin 0.4 MG Cap.ER PO ONE (18:58)
[2022-11-26 19:11] VITALS: BP 142/87; PULSE 77
== END 2022-11-26 19:20 | disposition home or self-care (01) ==
LOC: JP.ED 17:12
DX: N13.2 Hydronephrosis with renal and ureteral calculous obstruction (principal); N39.0 Urinary tract infection, site not specified; I48.91 Unspecified atrial fibrillation; E78.00 Pure hypercholesterolemia, unspecified; E03.9 Hypothyroidism, unspecified; Z88.8 Allergy status to other drugs, medicaments and biological substances; Z91.041 Radiographic dye allergy status; Z88.6 Allergy status to analgesic agent; Z88.5 Allergy status to narcotic agent; Z88.1 Allergy status to other antibiotic agents; Z79.899 Other long term (current) drug therapy; Z79.01 Long term (current) use of anticoagulants
CPT/HCPCS: 36415; 74176; 80053; 81001; 83605; 84145; 85027; 85610; 96361; 96374; 96375; 99284; A9270; J1885; J2405; J7030

== ENCOUNTER 2022-12-12 04:02 | Emergency (ER) | payer BC ==
[2022-12-12 04:17] VITALS: BP 138/78; PULSE 79
[2022-12-12] MEDS ORDERED: fentaNYL 100 MCG/2 ML SDV IVPUSH ONE (04:38)
[2022-12-12] MEDS ORDERED: Naloxone 0.4 MG/ML SDV IVPUSH PRN (04:38)
[2022-12-12 04:40] LABS: BASOPHILS ABSOLUTE AUTO 0.04 K/uL (0.00-0.10); BASOPHILS PERCENT AUTO 0.6 % (0.1-1.3); EOSINOPHILS ABSOLUTE AUTO 0.16 K/uL (0.00-0.40); EOSINOPHILS PERCENT AUTO 2.5 % (0.0-5.4); HEMATOCRIT 41.3 % (34.3-46.0); HEMOGLOBIN 13.7 g/dL (11.2-15.5); IMMATURE GRAN PERCENT AUTO 0.3 % (0.0-0.7); LYMPHOCYTES ABSOLUTE AUTO 1.29 K/uL (0.8-3.3); LYMPHOCYTES PERCENT AUTO 20.2 % (11.4-47.7); MEAN CORPUSCULAR HEMOGLOBIN 28.4 pg (31.6-35.5); MEAN CORPUSCULAR HGB CONC 33.2 g/dL (31.6-35.5); MEAN CORPUSCULAR VOLUME 85.5 fL (81.4-99.0); MONOCYTES ABSOLUTE AUTO 0.61 K/uL (0.20-0.90); MONOCYTES PERCENT AUTO 9.6 % (3.3-12.6); NEUTROPHILS ABSOLUTE AUTO 4.26 K/uL (1.0-7.6); NEUTROPHILS PERCENT AUTO 66.8 % (40.0-78.1); PLATELET COUNT,PLT 254 K/uL (130-375); RED BLOOD CELL COUNT 4.83 M/uL (3.77-5.24); WHITE BLOOD CELL COUNT,WBC 6.4 K/uL (3.2-11.0)
[2022-12-12 04:44] LABS: IMMATURE GRAN ABSOLUTE AUTO 0.02 K/uL (0.00-0.23)
[2022-12-12 04:53] LABS: CALCIUM 8.9 mg/dL (8.5-10.1); CREATININE 0.7 mg/dL (0.6-1.0); EST CRCL DRUG DOSING (CG) 85.19 mL/min; POTASSIUM,K 3.9 mmol/L (3.6-5.2)
[2022-12-12] MEDS ORDERED: Sodium Chloride 0.9% 1,000 ML IV ONE (04:53)
[2022-12-12 05:12] LABS: ANION GAP 10.9 mmol/L (5.0-14.0)
[2022-12-12 05:16] LABS: APPEARANCE,URINE CLOUDY (CLEAR); BILIRUBIN,URINE NEGATIVE (NEGATIVE); COLOR,URINE RED (YELLOW); GLUCOSE,URINE NEGATIVE (NEGATIVE); KETONES,URINE NEGATIVE (NEGATIVE); LEUKOCYTE ESTERASE,URINE NEGATIVE (NEGATIVE); NITRITE,URINE NEGATIVE (NEGATIVE); OCCULT BLOOD,URINE LARGE (NEGATIVE); PH,URINE 5.5 (5.0-8.0); PROTEIN,URINE 100 mg/dL (NEGATIVE); UROBILINOGEN,URINE 0.2 EU/dL (0.2-1.0)
[2022-12-12 05:26] LABS: AMORPHOUS SEDIMENT,URINE NOT SEEN; BACTERIA,URINE MODERATE; EPITHELIAL CELLS,URINE RARE; MUCUS,URINE NOT SEEN; RBC,URINE SEMI-PACKED (0-5); WBC,URINE 0-5 (0-5)
== END 2022-12-12 06:08 | disposition home or self-care (01) ==
LOC: JP.ED 04:02
DX: N13.2 Hydronephrosis with renal and ureteral calculous obstruction (principal); E78.00 Pure hypercholesterolemia, unspecified; I48.91 Unspecified atrial fibrillation; E03.9 Hypothyroidism, unspecified; Z88.5 Allergy status to narcotic agent; Z88.1 Allergy status to other antibiotic agents; Z91.041 Radiographic dye allergy status; Z79.01 Long term (current) use of anticoagulants; Z79.899 Other long term (current) drug therapy
CPT/HCPCS: 36415; 74176; 80048; 81001; 85025; 96361; 96374; 99284; J3010; J7030

== ENCOUNTER 2022-12-18 03:10 | Emergency (ER) | payer BC ==
[2022-12-18 03:27] VITALS: BP 152/81; PULSE 66
[2022-12-18 03:45] LABS: BASOPHILS ABSOLUTE AUTO 0.04 K/uL (0.00-0.10); BASOPHILS PERCENT AUTO 0.6 % (0.1-1.3); EOSINOPHILS ABSOLUTE AUTO 0.26 K/uL (0.00-0.40); EOSINOPHILS PERCENT AUTO 3.8 % (0.0-5.4); HEMATOCRIT 40.6 % (34.3-46.0); HEMOGLOBIN 13.2 g/dL (11.2-15.5); IMMATURE GRAN PERCENT AUTO 0.3 % (0.0-0.7); LYMPHOCYTES ABSOLUTE AUTO 1.73 K/uL (0.8-3.3); LYMPHOCYTES PERCENT AUTO 25.6 % (11.4-47.7); MEAN CORPUSCULAR HGB CONC 32.5 g/dL (31.6-35.5); MEAN CORPUSCULAR VOLUME 86.2 fL (81.4-99.0); MONOCYTES ABSOLUTE AUTO 0.64 K/uL (0.20-0.90); MONOCYTES PERCENT AUTO 9.5 % (3.3-12.6); NEUTROPHILS ABSOLUTE AUTO 4.08 K/uL (1.0-7.6); NEUTROPHILS PERCENT AUTO 60.2 % (40.0-78.1); PLATELET COUNT,PLT 284 K/uL (130-375); RED BLOOD CELL COUNT 4.71 M/uL (3.77-5.24); WHITE BLOOD CELL COUNT,WBC 6.8 K/uL (3.2-11.0)
[2022-12-18 03:48] LABS: IMMATURE GRAN ABSOLUTE AUTO 0.02 K/uL (0.00-0.23)
[2022-12-18 03:48] LABS: APPEARANCE,URINE CLOUDY (CLEAR)
[2022-12-18 03:49] LABS: COLOR,URINE OTHER (YELLOW)
[2022-12-18 03:55] LABS: AMORPHOUS SEDIMENT,URINE NOT SEEN; BACTERIA,URINE MODERATE; EPITHELIAL CELLS,URINE MODERATE; MUCUS,URINE FEW; RBC,URINE 40-50 (0-5)
[2022-12-18] MEDS ORDERED: Naloxone 0.4 MG/ML SDV IVPUSH PRN (03:56)
[2022-12-18] MEDS ORDERED: HYDROmorphone 0.5 MG/0.5 ML Syringe IM ONE (03:56)
[2022-12-18 04:00] LABS: ANION GAP 7.3 mmol/L (5.0-14.0); CALCIUM 8.8 mg/dL (8.5-10.1); CREATININE 0.7 mg/dL (0.6-1.0); EST CRCL DRUG DOSING (CG) 84.4 mL/min; POTASSIUM,K 3.8 mmol/L (3.6-5.2)
== END 2022-12-18 04:55 | disposition home or self-care (01) ==
LOC: JP.ED 03:10
DX: N39.0 Urinary tract infection, site not specified (principal); E78.00 Pure hypercholesterolemia, unspecified; E03.9 Hypothyroidism, unspecified; I48.91 Unspecified atrial fibrillation; Z87.891 Personal history of nicotine dependence; Z79.01 Long term (current) use of anticoagulants; Z79.899 Other long term (current) drug therapy; Z91.041 Radiographic dye allergy status; Z88.1 Allergy status to other antibiotic agents; Z88.5 Allergy status to narcotic agent; Z88.8 Allergy status to other drugs, medicaments and biological substances
CPT/HCPCS: 36415; 80048; 81001; 85025; 96372; 99284; J1170

== ENCOUNTER 2023-03-16 16:40 | Emergency (ER) | payer BC ==
[2023-03-16] MEDS ORDERED: Sodium Chloride 0.9% 10 ML Syringe FLUSH PRN (18:15)
[2023-03-16 18:33] LABS: BASOPHILS ABSOLUTE AUTO 0.03 K/uL (0.00-0.10); BASOPHILS PERCENT AUTO 0.4 % (0.1-1.3); EOSINOPHILS ABSOLUTE AUTO 0.24 K/uL (0.00-0.40); EOSINOPHILS PERCENT AUTO 3.2 % (0.0-5.4); HEMATOCRIT 42.9 % (34.3-46.0); HEMOGLOBIN 14.2 g/dL (11.2-15.5); IMMATURE GRAN ABSOLUTE AUTO 0.03 K/uL (0.00-0.23); IMMATURE GRAN PERCENT AUTO 0.4 % (0.0-0.7); LYMPHOCYTES ABSOLUTE AUTO 1.44 K/uL (0.8-3.3); LYMPHOCYTES PERCENT AUTO 19.2 % (11.4-47.7); MEAN CORPUSCULAR HEMOGLOBIN 29.1 pg (31.6-35.5); MEAN CORPUSCULAR HGB CONC 33.1 g/dL (31.6-35.5); MEAN CORPUSCULAR VOLUME 87.9 fL (81.4-99.0); MONOCYTES ABSOLUTE AUTO 0.72 K/uL (0.20-0.90); MONOCYTES PERCENT AUTO 9.6 % (3.3-12.6); NEUTROPHILS ABSOLUTE AUTO 5.05 K/uL (1.0-7.6); NEUTROPHILS PERCENT AUTO 67.2 % (40.0-78.1); PLATELET COUNT,PLT 244 K/uL (130-375); RED BLOOD CELL COUNT 4.88 M/uL (3.77-5.24); WHITE BLOOD CELL COUNT,WBC 7.5 K/uL (3.2-11.0)
[2023-03-16 19:04] LABS: ALANINE AMINOTRANSFERASE,ALT 33 U/L (12-78); ALBUMIN 3.4 g/dL (3.4-5.0); ALKALINE PHOSPHATASE 69 U/L (46-116); ANION GAP 7.4 mmol/L (5.0-14.0); ASPARTATE AMNIOTRANSFERASE,AST 23 U/L (15-37); BILIRUBIN TOTAL 0.3 mg/dL (0.2-1.0); BLOOD UREA NITROGEN,BUN 14 mg/dL (7-18); CALCIUM 8.5 mg/dL (8.5-10.1); CARBON DIOXIDE,CO2 29 mmol/L (21-32); CHLORIDE,CL 105 mmol/L (100-108); CREATININE 0.8 mg/dL (0.6-1.0); EST CRCL DRUG DOSING (CG) 71.76 mL/min; ESTIMATED GFR 85 mL/min (>60); GLUCOSE RANDOM 103 mg/dL (74-106); POTASSIUM,K 3.9 mmol/L (3.6-5.2); PROTEIN TOTAL,TP 6.7 g/dL (6.4-8.2); SODIUM,NA 141 mmol/L (140-148); TROPONIN I HIGH SENSITIVITY 13.8 pg/mL (<=60.3); TSH ULTRASENSITIVE 2.559 uIU/mL (0.358-3.740)
[2023-03-16] MEDS ORDERED: Diltiazem 25 MG/5 ML SDV IVPUSH ONE (19:27)
[2023-03-16] MEDS ORDERED: Metoprolol Tartrate 25 MG Tab PO ONE (19:30)
[2023-03-16] MEDS ORDERED: Propofol 200 MG/20 ML SDV ONE (21:51)
[2023-03-16 22:36] VITALS: BP 122/85; PULSE 60
== END 2023-03-16 23:04 | disposition home or self-care (01) ==
LOC: JP.ED 16:40
DX: I48.0 Paroxysmal atrial fibrillation (principal); R06.00 Dyspnea, unspecified; I50.9 Heart failure, unspecified; I48.91 Unspecified atrial fibrillation; E78.00 Pure hypercholesterolemia, unspecified; E03.9 Hypothyroidism, unspecified; Z79.01 Long term (current) use of anticoagulants; Z79.899 Other long term (current) drug therapy; Z91.041 Radiographic dye allergy status; Z88.6 Allergy status to analgesic agent; Z88.8 Allergy status to other drugs, medicaments and biological substances; Z88.5 Allergy status to narcotic agent; Z88.1 Allergy status to other antibiotic agents
CPT/HCPCS: 36415; 80053; 83880; 84443; 84484; 85025; 92960; 93005; 93010; 96374; 99284; 99285-25; A9270-GY; J2704; J3490

== ENCOUNTER 2023-03-29 20:27 | Emergency (ER) | payer BC ==
[2023-03-29 21:15] VITALS: BP 141/95; PULSE 73
[2023-03-29] MEDS ORDERED: Propofol 200 MG/20 ML SDV ONE (21:33)
== END 2023-03-29 22:25 | disposition home or self-care (01) ==
LOC: JP.ED 20:27
DX: I48.91 Unspecified atrial fibrillation (principal); I48.92 Unspecified atrial flutter; E78.00 Pure hypercholesterolemia, unspecified; E03.9 Hypothyroidism, unspecified; Z90.710 Acquired absence of both cervix and uterus; Z87.891 Personal history of nicotine dependence; Z79.899 Other long term (current) drug therapy; Z79.01 Long term (current) use of anticoagulants; Z88.6 Allergy status to analgesic agent; Z91.041 Radiographic dye allergy status; Z88.1 Allergy status to other antibiotic agents; Z88.5 Allergy status to narcotic agent; Z88.8 Allergy status to other drugs, medicaments and biological substances
CPT/HCPCS: 92960; 93005; 99284; J2704

== ENCOUNTER 2023-05-30 09:44 | Emergency (ER) | payer BC ==
[2023-05-30 10:30] LABS: BASOPHILS ABSOLUTE AUTO 0.03 K/uL (0.00-0.10); BASOPHILS PERCENT AUTO 0.4 % (0.1-1.3); EOSINOPHILS ABSOLUTE AUTO 0.24 K/uL (0.00-0.40); EOSINOPHILS PERCENT AUTO 3.2 % (0.0-5.4); HEMATOCRIT 41.1 % (34.3-46.0); HEMOGLOBIN 13.9 g/dL (11.2-15.5); IMMATURE GRAN ABSOLUTE AUTO 0.03 K/uL (0.00-0.23); IMMATURE GRAN PERCENT AUTO 0.4 % (0.0-0.7); LYMPHOCYTES ABSOLUTE AUTO 1.12 K/uL (0.8-3.3); LYMPHOCYTES PERCENT AUTO 15.1 % (11.4-47.7); MEAN CORPUSCULAR HEMOGLOBIN 29.5 pg (31.6-35.5); MEAN CORPUSCULAR HGB CONC 33.8 g/dL (31.6-35.5); MEAN CORPUSCULAR VOLUME 87.3 fL (81.4-99.0); MONOCYTES ABSOLUTE AUTO 0.55 K/uL (0.20-0.90); MONOCYTES PERCENT AUTO 7.4 % (3.3-12.6); NEUTROPHILS ABSOLUTE AUTO 5.44 K/uL (1.0-7.6); NEUTROPHILS PERCENT AUTO 73.5 % (40.0-78.1); PLATELET COUNT,PLT 251 K/uL (130-375); RED BLOOD CELL COUNT 4.71 M/uL (3.77-5.24); WHITE BLOOD CELL COUNT,WBC 7.4 K/uL (3.2-11.0)
[2023-05-30 10:48] LABS: PROTHROMBIN TIME 40.4 sec (9.2-10.6)
[2023-05-30 10:50] LABS: INR 4.4
[2023-05-30 11:02] LABS: A/G RATIO 1.1 (1.2-2.2); ALANINE AMINOTRANSFERASE,ALT 31 U/L (12-78); ALBUMIN 3.3 g/dL (3.4-5.0); ALKALINE PHOSPHATASE 62 U/L (46-116); ANION GAP 7.2 mmol/L (5.0-14.0); ASPARTATE AMNIOTRANSFERASE,AST 16 U/L (15-37); BILIRUBIN TOTAL 0.5 mg/dL (0.2-1.0); BLOOD UREA NITROGEN,BUN 12 mg/dL (7-18); CALCIUM 8.4 mg/dL (8.5-10.1); CARBON DIOXIDE,CO2 28 mmol/L (21-32); CHLORIDE,CL 105 mmol/L (100-108); CREATININE 0.7 mg/dL (0.6-1.0); EST CRCL DRUG DOSING (CG) 82.01 mL/min; ESTIMATED GFR 100 mL/min (>60); GLUCOSE RANDOM 104 mg/dL (74-106); POTASSIUM,K 4.5 mmol/L (3.6-5.2); PRO B-TYPE NATRIUR PEPT,BNPPRO 1448 pg/mL (5-125); PROTEIN TOTAL,TP 6.3 g/dL (6.4-8.2); SODIUM,NA 140 mmol/L (140-148)
[2023-05-30] MEDS ORDERED: Propofol 200 MG/20 ML SDV ONE (12:04)
[2023-05-30 12:49] VITALS: BP 129/69; PULSE 62
== END 2023-05-30 12:50 | disposition home or self-care (01) ==
LOC: JP.ED 09:44
DX: I48.91 Unspecified atrial fibrillation (principal); I48.92 Unspecified atrial flutter; E78.00 Pure hypercholesterolemia, unspecified; E03.9 Hypothyroidism, unspecified; Z79.01 Long term (current) use of anticoagulants; Z79.899 Other long term (current) drug therapy; Z88.1 Allergy status to other antibiotic agents; Z88.5 Allergy status to narcotic agent; Z88.6 Allergy status to analgesic agent; Z88.8 Allergy status to other drugs, medicaments and biological substances; Z91.041 Radiographic dye allergy status
CPT/HCPCS: 36415; 71045; 80053; 83880; 84443; 84484; 85025; 85610; 92960; 93005; 99284; J2704; 93010

== ENCOUNTER 2023-08-23 14:26 | Emergency (ER) | payer BC ==
[2023-08-23] MEDS ORDERED: Naloxone 0.4 MG/ML SDV IVPUSH PRN (15:56)
[2023-08-23] MEDS: Midazolam 1 MG/ML 2 ML SDV IVPUSH ONE (16:25)
[2023-08-23] MEDS: fentaNYL 50 MCG/ML SDV IVPUSH ONE ×2 (16:25→16:34)
[2023-08-23 16:34] LABS: ANION GAP 8.2 mmol/L (5.0-14.0); CALCIUM 9.2 mg/dL (8.5-10.1); CREATININE 0.8 mg/dL (0.6-1.0); EST CRCL DRUG DOSING (CG) 71.76 mL/min; TROPONIN I HIGH SENSITIVITY 10.9 pg/mL (<=60.3)
[2023-08-23 16:37] LABS: HEMOGLOBIN 13.9 g/dL (11.2-15.5); PLATELET COUNT,PLT 245 K/uL (130-375); WHITE BLOOD CELL COUNT,WBC 10.5 K/uL (3.2-11.0)
[2023-08-23 16:39] LABS: EOSINOPHILS ABSOLUTE MAN 0.32 K/uL (0.00-0.40); EOSINOPHILS PERCENT MAN 3 % (2-4); LYMPHOCYTES ABSOLUTE MAN 3.26 K/uL (0.8-3.3); LYMPHOCYTES PERCENT MAN 31 % (24-44); MONOCYTES ABSOLUTE MAN 1.05 K/uL (0.20-0.90); MONOCYTES PERCENT MAN 10 % (2-6); NEUTROPHILS ABSOLUTE MAN 5.88 K/uL (1.0-7.6); SEG NEUTROPHILS PERCENT MAN 56 % (36-66)
[2023-08-23] MEDS: fentaNYL 50 MCG/ML SDV ONE (16:39)
[2023-08-23 16:50] VITALS: BP 141/78; PULSE 90
[2023-08-23] MEDS ORDERED: Propofol 200 MG/20 ML SDV ONE (16:57)
== END 2023-08-23 18:00 | disposition home or self-care (01) ==
LOC: JP.ED 14:26
DX: I48.91 Unspecified atrial fibrillation (principal); I48.92 Unspecified atrial flutter; E78.00 Pure hypercholesterolemia, unspecified; E03.9 Hypothyroidism, unspecified; Z86.19 Personal history of other infectious and parasitic diseases; Z79.899 Other long term (current) drug therapy; Z91.041 Radiographic dye allergy status; Z88.5 Allergy status to narcotic agent; Z88.1 Allergy status to other antibiotic agents; Z79.01 Long term (current) use of anticoagulants; Z88.8 Allergy status to other drugs, medicaments and biological substances; Z88.6 Allergy status to analgesic agent
CPT/HCPCS: 36415; 80048; 84484; 85025; 92960; 93005; 99285; J2250; J2704; J3010

== ENCOUNTER 2024-01-10 02:02 | Emergency (ER) | payer BC ==
[2024-01-10 02:26] LABS: BASOPHILS PERCENT AUTO 0.3 % (0.1-1.3); EOSINOPHILS ABSOLUTE AUTO 0.15 K/uL (0.00-0.40); EOSINOPHILS PERCENT AUTO 2.3 % (0.0-5.4); HEMATOCRIT 37.3 % (34.3-46.0); HEMOGLOBIN 12.9 g/dL (11.2-15.5); IMMATURE GRAN ABSOLUTE AUTO 0.03 K/uL (0.00-0.23); IMMATURE GRAN PERCENT AUTO 0.5 % (0.0-0.7); LYMPHOCYTES ABSOLUTE AUTO 1.36 K/uL (0.8-3.3); LYMPHOCYTES PERCENT AUTO 20.7 % (11.4-47.7); MEAN CORPUSCULAR HEMOGLOBIN 28.8 pg (31.6-35.5); MEAN CORPUSCULAR HGB CONC 34.6 g/dL (31.6-35.5); MEAN CORPUSCULAR VOLUME 83.3 fL (81.4-99.0); MONOCYTES ABSOLUTE AUTO 0.48 K/uL (0.20-0.90); MONOCYTES PERCENT AUTO 7.3 % (3.3-12.6); NEUTROPHILS ABSOLUTE AUTO 4.54 K/uL (1.0-7.6); NEUTROPHILS PERCENT AUTO 68.9 % (40.0-78.1); PLATELET COUNT,PLT 302 K/uL (130-375); RED BLOOD CELL COUNT 4.48 M/uL (3.77-5.24); WHITE BLOOD CELL COUNT,WBC 6.6 K/uL (3.2-11.0)
[2024-01-10 02:39] LABS: BASOPHILS ABSOLUTE AUTO 0.02 K/uL (0.00-0.10)
[2024-01-10 02:46] LABS: A/G RATIO 1.1 (1.2-2.2); ALANINE AMINOTRANSFERASE,ALT 32 U/L (12-78); ALBUMIN 3.5 g/dL (3.4-5.0); ALKALINE PHOSPHATASE 77 U/L (46-116); ASPARTATE AMNIOTRANSFERASE,AST 24 U/L (15-37); BILIRUBIN TOTAL 0.4 mg/dL (0.2-1.0); BLOOD UREA NITROGEN,BUN 17 mg/dL (7-18); CALCIUM 9.2 mg/dL (8.5-10.1); CARBON DIOXIDE,CO2 24 mmol/L (21-32); CHLORIDE,CL 104 mmol/L (100-108); CREATININE 0.9 mg/dL (0.6-1.0); EST CRCL DRUG DOSING (CG) 65.45 mL/min; ESTIMATED GFR 74 mL/min (>60); GLUCOSE RANDOM 194 mg/dL (74-106); POTASSIUM,K 3.3 mmol/L (3.6-5.2); PROTEIN TOTAL,TP 6.6 g/dL (6.4-8.2); SODIUM,NA 140 mmol/L (140-148)
[2024-01-10 02:47] LABS: ANION GAP 15.3 mmol/L (5.0-14.0)
[2024-01-10 04:53] VITALS: BP 109/53; PULSE 73
== END 2024-01-10 04:50 | disposition home or self-care (01) ==
LOC: JP.ED 02:02
DX: F12.120 Cannabis abuse with intoxication, uncomplicated (principal); E78.00 Pure hypercholesterolemia, unspecified; I48.91 Unspecified atrial fibrillation; E03.9 Hypothyroidism, unspecified; Z86.16 Personal history of COVID-19; Z90.49 Acquired absence of other specified parts of digestive tract; Z90.710 Acquired absence of both cervix and uterus; Z88.5 Allergy status to narcotic agent; Z88.8 Allergy status to other drugs, medicaments and biological substances; Z91.041 Radiographic dye allergy status; Z88.1 Allergy status to other antibiotic agents; Z88.6 Allergy status to analgesic agent; Z79.51 Long term (current) use of inhaled steroids; Z79.899 Other long term (current) drug therapy; Z79.01 Long term (current) use of anticoagulants
CPT/HCPCS: 36415; 80053; 85025; 99283; 99284

== ENCOUNTER 2024-01-18 10:01 | Emergency (ER) | payer BC ==
[2024-01-18 10:57] LABS: BASOPHILS ABSOLUTE AUTO 0.03 K/uL (0.00-0.10); BASOPHILS PERCENT AUTO 0.5 % (0.1-1.3); EOSINOPHILS ABSOLUTE AUTO 0.16 K/uL (0.00-0.40); EOSINOPHILS PERCENT AUTO 2.9 % (0.0-5.4); HEMATOCRIT 42.8 % (34.3-46.0); HEMOGLOBIN 14.6 g/dL (11.2-15.5); IMMATURE GRAN PERCENT AUTO 0.2 % (0.0-0.7); LYMPHOCYTES ABSOLUTE AUTO 1.12 K/uL (0.8-3.3); LYMPHOCYTES PERCENT AUTO 20.4 % (11.4-47.7); MEAN CORPUSCULAR HEMOGLOBIN 28.5 pg (31.6-35.5); MEAN CORPUSCULAR HGB CONC 34.1 g/dL (31.6-35.5); MEAN CORPUSCULAR VOLUME 83.6 fL (81.4-99.0); MONOCYTES ABSOLUTE AUTO 0.48 K/uL (0.20-0.90); MONOCYTES PERCENT AUTO 8.8 % (3.3-12.6); NEUTROPHILS ABSOLUTE AUTO 3.68 K/uL (1.0-7.6); NEUTROPHILS PERCENT AUTO 67.2 % (40.0-78.1); PLATELET COUNT,PLT 287 K/uL (130-375); RED BLOOD CELL COUNT 5.12 M/uL (3.77-5.24); WHITE BLOOD CELL COUNT,WBC 5.5 K/uL (3.2-11.0)
[2024-01-18] MEDS: Sodium Chloride 0.9% 1,000 ML IV SCH (11:00)
[2024-01-18 11:05] LABS: IMMATURE GRAN ABSOLUTE AUTO 0.01 K/uL (0.00-0.23)
[2024-01-18] MEDS ORDERED: Propofol 200 MG/20 ML SDV ONE (11:08)
[2024-01-18 11:14] LABS: ANION GAP 11.7 mmol/L (5.0-14.0); CALCIUM 9.3 mg/dL (8.5-10.1); CREATININE 0.7 mg/dL (0.6-1.0); EST CRCL DRUG DOSING (CG) 84.15 mL/min; POTASSIUM,K 4.1 mmol/L (3.6-5.2); TROPONIN I HIGH SENSITIVITY 15.1 pg/mL (<=60.3)
[2024-01-18 11:23] LABS: INR 1.8; PROTHROMBIN TIME 18.1 sec (9.2-10.6)
[2024-01-18 12:11] VITALS: BP 122/68; PULSE 54
== END 2024-01-18 12:15 | disposition home or self-care (01) ==
LOC: JP.ED 10:01
DX: I48.91 Unspecified atrial fibrillation (principal); I48.92 Unspecified atrial flutter; E78.00 Pure hypercholesterolemia, unspecified; E03.9 Hypothyroidism, unspecified; I10 Essential (primary) hypertension; Z88.6 Allergy status to analgesic agent; Z88.5 Allergy status to narcotic agent; Z91.041 Radiographic dye allergy status; Z88.1 Allergy status to other antibiotic agents; Z90.49 Acquired absence of other specified parts of digestive tract; Z79.890 Hormone replacement therapy; Z79.899 Other long term (current) drug therapy
CPT/HCPCS: 36415; 80048; 84484; 85025; 85610; 92960; 93005; 99285; J2704; J7030; 99156

== ENCOUNTER 2024-01-21 06:04 | Emergency (ER) | payer BC ==
[2024-01-21 07:31] VITALS: BP 133/74; PULSE 71
[2024-01-21] MEDS: Sodium Chloride 0.9% 1,000 ML IV ONE (07:35)
[2024-01-21 07:36] LABS: BASOPHILS ABSOLUTE AUTO 0.03 K/uL (0.00-0.10); BASOPHILS PERCENT AUTO 0.5 % (0.1-1.3); EOSINOPHILS ABSOLUTE AUTO 0.15 K/uL (0.00-0.40); EOSINOPHILS PERCENT AUTO 2.6 % (0.0-5.4); HEMATOCRIT 40.5 % (34.3-46.0); HEMOGLOBIN 13.7 g/dL (11.2-15.5); IMMATURE GRAN PERCENT AUTO 0.2 % (0.0-0.7); LYMPHOCYTES ABSOLUTE AUTO 1.17 K/uL (0.8-3.3); MEAN CORPUSCULAR HEMOGLOBIN 28.5 pg (31.6-35.5); MEAN CORPUSCULAR HGB CONC 33.8 g/dL (31.6-35.5); MEAN CORPUSCULAR VOLUME 84.2 fL (81.4-99.0); MONOCYTES PERCENT AUTO 10.2 % (3.3-12.6); NEUTROPHILS PERCENT AUTO 66.5 % (40.0-78.1); PLATELET COUNT,PLT 253 K/uL (130-375); RED BLOOD CELL COUNT 4.81 M/uL (3.77-5.24); WHITE BLOOD CELL COUNT,WBC 5.9 K/uL (3.2-11.0)
[2024-01-21 07:37] LABS: IMMATURE GRAN ABSOLUTE AUTO 0.01 K/uL (0.00-0.23)
[2024-01-21] MEDS ORDERED: Propofol 200 MG/20 ML SDV ONE (07:52)
[2024-01-21 08:05] LABS: A/G RATIO 1.1 (1.2-2.2); ALANINE AMINOTRANSFERASE,ALT 29 U/L (12-78); ALBUMIN 3.6 g/dL (3.4-5.0); ALKALINE PHOSPHATASE 88 U/L (46-116); ANION GAP 6.3 mmol/L (5.0-14.0); ASPARTATE AMNIOTRANSFERASE,AST 21 U/L (15-37); BILIRUBIN TOTAL 0.5 mg/dL (0.2-1.0); BLOOD UREA NITROGEN,BUN 11 mg/dL (7-18); CALCIUM 8.9 mg/dL (8.5-10.1); CARBON DIOXIDE,CO2 28 mmol/L (21-32); CHLORIDE,CL 107 mmol/L (100-108); CREATININE 0.7 mg/dL (0.6-1.0); EST CRCL DRUG DOSING (CG) 83.37 mL/min; ESTIMATED GFR 100 mL/min (>60); GLUCOSE RANDOM 107 mg/dL (74-106); POTASSIUM,K 3.9 mmol/L (3.6-5.2); SODIUM,NA 141 mmol/L (140-148)
== END 2024-01-21 09:00 | disposition home or self-care (01) ==
LOC: JP.ED 06:04
DX: I48.91 Unspecified atrial fibrillation (principal); I48.92 Unspecified atrial flutter; I10 Essential (primary) hypertension; E78.00 Pure hypercholesterolemia, unspecified; E03.9 Hypothyroidism, unspecified; Z86.16 Personal history of COVID-19; Z87.891 Personal history of nicotine dependence; Z79.899 Other long term (current) drug therapy; Z79.01 Long term (current) use of anticoagulants; Z88.1 Allergy status to other antibiotic agents; Z88.5 Allergy status to narcotic agent; Z88.6 Allergy status to analgesic agent; Z91.041 Radiographic dye allergy status; Z88.8 Allergy status to other drugs, medicaments and biological substances
CPT/HCPCS: 36415; 80053; 84443; 85025; 92960; 93005; 93010; 96360; 99284; 99285; J2704; J7030

== ENCOUNTER 2024-01-22 23:40 | Emergency (ER) | payer BC ==
[2024-01-23 00:07] LABS: BASOPHILS ABSOLUTE AUTO 0.04 K/uL (0.00-0.10); BASOPHILS PERCENT AUTO 0.5 % (0.1-1.3); EOSINOPHILS ABSOLUTE AUTO 0.13 K/uL (0.00-0.40); EOSINOPHILS PERCENT AUTO 1.7 % (0.0-5.4); HEMATOCRIT 45.5 % (34.3-46.0); HEMOGLOBIN 15.5 g/dL (11.2-15.5); IMMATURE GRAN ABSOLUTE AUTO 0.04 K/uL (0.00-0.23); IMMATURE GRAN PERCENT AUTO 0.5 % (0.0-0.7); LYMPHOCYTES PERCENT AUTO 23.2 % (11.4-47.7); MEAN CORPUSCULAR HEMOGLOBIN 28.3 pg (31.6-35.5); MEAN CORPUSCULAR HGB CONC 34.1 g/dL (31.6-35.5); MEAN CORPUSCULAR VOLUME 83.2 fL (81.4-99.0); MONOCYTES ABSOLUTE AUTO 0.66 K/uL (0.20-0.90); MONOCYTES PERCENT AUTO 8.5 % (3.3-12.6); NEUTROPHILS ABSOLUTE AUTO 5.08 K/uL (1.0-7.6); NEUTROPHILS PERCENT AUTO 65.6 % (40.0-78.1); PLATELET COUNT,PLT 274 K/uL (130-375); RED BLOOD CELL COUNT 5.47 M/uL (3.77-5.24); WHITE BLOOD CELL COUNT,WBC 7.8 K/uL (3.2-11.0)
[2024-01-23 00:10] LABS: ALANINE AMINOTRANSFERASE,ALT 34 U/L (12-78); ALKALINE PHOSPHATASE 93 U/L (46-116); ANION GAP 10.9 mmol/L (5.0-14.0); ASPARTATE AMNIOTRANSFERASE,AST 23 U/L (15-37); BILIRUBIN TOTAL 0.4 mg/dL (0.2-1.0); BLOOD UREA NITROGEN,BUN 16 mg/dL (7-18); CALCIUM 9.8 mg/dL (8.5-10.1); CARBON DIOXIDE,CO2 25 mmol/L (21-32); CHLORIDE,CL 106 mmol/L (100-108); CREATININE 0.8 mg/dL (0.6-1.0); EST CRCL DRUG DOSING (CG) 73.63 mL/min; ESTIMATED GFR 85 mL/min (>60); GLUCOSE RANDOM 110 mg/dL (74-106); POTASSIUM,K 3.9 mmol/L (3.6-5.2); PROTEIN TOTAL,TP 7.9 g/dL (6.4-8.2); SODIUM,NA 142 mmol/L (140-148)
[2024-01-23] MEDS: Sodium Chloride 0.9% 1,000 ML IV SCH ×2 (00:10→06:04)
[2024-01-23 01:07] LABS: APPEARANCE,URINE CLEAR (CLEAR); BILIRUBIN,URINE NEGATIVE (NEGATIVE); COLOR,URINE YELLOW (YELLOW); GLUCOSE,URINE NEGATIVE (NEGATIVE); KETONES,URINE NEGATIVE (NEGATIVE); LEUKOCYTE ESTERASE,URINE NEGATIVE (NEGATIVE); NITRITE,URINE NEGATIVE (NEGATIVE); OCCULT BLOOD,URINE TRACE-LYSED (NEGATIVE); PROTEIN,URINE NEGATIVE (NEGATIVE); UROBILINOGEN,URINE 0.2 EU/dL (0.2-1.0)
[2024-01-23 01:12] LABS: AMORPHOUS SEDIMENT,URINE NOT SEEN; BACTERIA,URINE RARE; EPITHELIAL CELLS,URINE RARE; MUCUS,URINE NOT SEEN; RBC,URINE 0-5 (0-5); WBC,URINE 0-5 (0-5)
[2024-01-23 01:37] LABS: INR 3.1; PROTHROMBIN TIME 30.6 sec (9.2-10.6)
[2024-01-23 08:59] VITALS: BP 132/84; PULSE 88
== END 2024-01-23 09:13 ==
LOC: JP.ED 23:40
DX: I48.91 Unspecified atrial fibrillation (principal); I48.92 Unspecified atrial flutter; I10 Essential (primary) hypertension; E78.00 Pure hypercholesterolemia, unspecified; E03.9 Hypothyroidism, unspecified; Z86.16 Personal history of COVID-19; Z90.49 Acquired absence of other specified parts of digestive tract; Z90.710 Acquired absence of both cervix and uterus; Z79.890 Hormone replacement therapy; Z79.899 Other long term (current) drug therapy; Z79.01 Long term (current) use of anticoagulants; Z88.6 Allergy status to analgesic agent; Z88.5 Allergy status to narcotic agent; Z88.1 Allergy status to other antibiotic agents; Z91.048 Other nonmedicinal substance allergy status; Z88.8 Allergy status to other drugs, medicaments and biological substances; Z91.041 Radiographic dye allergy status
CPT/HCPCS: 36415; 80053; 81001; 84443; 84484; 85025; 85610; 93005; 93010; 96360; 99285; J7030